=== PATIENT | male | born 1990 | race Caucasian/White ===

== ENCOUNTER 2024-03-21 12:07 | Emergency (ER) | payer SELFPAY ==
[2024-03-21 12:35] VITALS: BP 133/81; PULSE 84; RESP 17; TEMP 98.3; BMI 25.8
[2024-03-21] MEDS ORDERED: LIDOCAINE VISCOUS 2% ORAL/TOP 15 ML UNIT-DOSE CUP ONE (14:40)
[2024-03-21] MEDS: LIDOCAINE VISCOUS 2% ORAL/TOP 100 ML BOTTLE MM ONE (14:44)
[2024-03-21 15:40] LABS: HEMATOCRIT 44.7 % (35.4-49); HEMOGLOBIN 14.7 GM/dL (11.7-16.9); MCH 29.4 pg (25.7-33.7); MCHC 32.9 g/dl (32.0-35.9); MEAN CELL VOLUME 89.4 fl (80-96); MEAN PLT VOLUME 8.3 fl (7.5-11.1); PLATELET COUNT 410 10^3/uL (134-434); RDW 13.8 % (11.9-15.9); WHITE BLOOD COUNT 7.6 K/mm3 (4.0-10.0)
[2024-03-21 16:08] LABS: POTASSIUM 3.8 mmol/L (3.5-5.1)
[2024-03-21 16:15] LABS: BLOOD UREA NITROGEN 11.4 mg/dL (7-18); CALCIUM 9.6 mg/dL (8.5-10.1)
[2024-03-21 16:16] LABS: ALBUMIN 4.3 g/dl (3.4-5.0)
[2024-03-21 16:19] LABS: CREATININE 0.9 mg/dL (0.55-1.3)
[2024-03-21 16:20] LABS: BILIRUBIN,TOTAL 1.2 mg/dL (0.2-1)
== END 2024-03-21 16:36 | disposition home or self-care (01) ==
LOC: JER 12:07 → JERFT 12:07
DX: R09.A2 Foreign body sensation, throat (principal)
CPT/HCPCS: 36415; 70360-TC-FY; 70490-TC; 80053; 85027; 99285-25